=== PATIENT | female | born 1980 | race Hispanic/Latino ===

== ENCOUNTER 2017-02-15 19:41 | Emergency (ER) | payer OTHER ==
[~2017-02-15] VITALS: Ht 157.5 cm; Wt 80.9 kg
[~2017-02-15 19:41] MED LIST: POLY17PO6 PO; amitriptyline; keppra
[2017-02-15 20:00] VITALS: BP 119/80; PULSE 60; RESP 16; O2SAT 99
--- NOTE | 2017-02-15 21:57 | ED.REPORT ---
HPI-Extremity Problem Lower Date of Service Feb 15, 2017 ED Provider: Zach Del Rosario MD Pt is a 36 y/o female who presents to the ED c/o a possible infection to her left ankle s/p surgery. Per pt's , she had surgery on 01/21/17 in [place] by picking belt operator, Dr. Karolyn Ruiz. Pt states there was pus coming out of the surgical site. Nursing Notes Stated Complaint: INFECTION Chief Complaint: Extremity Trauma Nursing Notes Reviewed: Yes Allergies: Coded Allergies: No Known Allergies (Unverified Allergy, Unknown, 02/15/17) Scheduled Polyethylene Glycol 3350 (Miralax) 17 Gm Powd.pack 17 GM PO DAILY Miscellaneous Medications ([keppra]) ([amitriptyline]) General Time Seen by MD: 21:57 Chief Complaint Other (possible infection s/p surgery on L ankle ) Hx Obtained From: Patient, Spouse Arrived By: Walk-in Symptom Duration: Constant Location: : Ankle left Quality: Pleuritic Severity: Current: Mild Severity: Maximum: Moderate Pertinent Negative: Pt denies other symptoms Recent Healthcare: Recent doctor visit Similar Sx Previous: No Past Medical History Past Medical History Asthma Seizure Pt reports history of brain cancer, post resection 4 years ago Past Surgical History Brain surgery Family History Noncontributory Smoking History Never Smoker Social History Alcohol Use: Denies alcohol use Drug Use: Denies drug use Other Social History: Good social support, Lives with children, Local resident Ambulatory Status Independent Review of Systems Possible infection s/p surgery to L ankle Pus coming out of surgical site Constitutional: Denies: Chills, Fever Musculoskeletal: Reports: Extremity pain (L ankle) Skin: Denies Rash Neurologic: Denies: Headache, Numbness Complete sys rev & neg: except as marked. Eyes: Denies: Visual loss bilateral Respiratory: Denies: Non-productive cough, Prod cough, clear, Shortness of breath Allergy / Immune: Denies: Itching Physical Exam Initial Vital Signs Vital Signs (First) Date Time Temp Pulse Resp B/P Pulse Ox O2 Delivery O2 Flow Rate FiO2 02/15/17 20:00 36.8 60 16 119/80 99 Room Air Initial VS: Reviewed Head / Eyes: Atraumatic, Normocephalic Neck: Supple Respiratory: No respiratory distress Upper Extremities: Vascular intact, Neuro intact, No swelling, No tenderness Neurologic: Alert, Oriented, Nonfocal Psychiatric: Mood/affect normal, Behavior normal, Normal thought content Lower Extremity / Pelvis / MS: Neurologic intact, Vascular intact Ankle / Foot: Neurologic intact, Vascular intact 2 fairly clean incisions on left lateral ankle with swelling and erythema Good cap refill General/Constitutional: Awake, Alert Interpretation & Diagnostics Lab Results Interpretation Result Diagram: 02/15/17 2320 02/15/17 2320 Test 02/15/17 23:20 02/15/17 23:21 White Blood Count 7.4th/mm3 (3.8-10.1) Red Blood Count 4.31mil/mm3 (3.90-5.20) Hemoglobin 13.3g/dL (12.0-15.6) Hematocrit 37.7% (35.0-46.0) Mean Corpuscular Volume 87.5fL (81-100) Mean Corpuscular Hemoglobin 30.9pg (27.0-35.0) Mean Corpuscular Hemoglobin Concent 35.3% (32.0-37.0) Red Cell Distribution Width 12.4% (12.3-15.4) Platelet Count 257bil/L (150-400) Neutrophils (%) (Auto) 49.3% (40-74) Lymphocytes (%) (Auto) 38.7% (14-46) Monocytes (%) (Auto) 5.8% (4-12) Eosinophils (%) (Auto) 5.6% (0-5) Basophils (%) (Auto) 0.5% (0-3) Erythrocyte Sedimentation Rate 20mm/hr (0-32) Sodium Level 137mEq/L (134-144) Potassium Level 3.9mEq/L (3.5-5.2) Chloride Level 100mEq/L (97-108) Carbon Dioxide Level 24mmol/L (18-29) Blood Urea Nitrogen 10mg/dL (6-20) Creatinine 0.50mg/dL (0.57-1.00) Estimat Glomerular Filtration Rate 201mL/min (>59) Glucose Level 98mg/dL (60-99) Calcium Level 9.5mg/dL (8.5-10.1) Hold Herrera Top Tube Received (Received) X-Ray Interpretation Xray Interpretation: Left Ankle X-Ray: No abnormal findings. Interpretation / Wet Read by: Wet read ED physician Re-Eval/Medical Decision Med Decision/Clinical Course 36-year-old presents with swelling and mild redness in the operative area of her ankle. She was operative on by Dr. Ruiz a little over a week ago. X-ray is unremarkable and labs including cultures pending. Discharged in stable condition for follow-up with Dr. Ruiz tomorrow in the office. Discussed with Dr. Ruiz Source of Hx: Old records Re-Evaluation/Progress : Time of Eval: 21:57 Re-Evaluation/Progress Note: Discussed plan for discharge with f/u with Dr. Ruiz. Patient understands and agrees with plan. F/U instructions and RTER warnings given. All questions addressed at this time. Consultation : Referral / Consult Name: Karolyn Ruzi DPM Call Returned at: 22:22 Property Preservation Specialist: Will see patient, Agrees with eval, Agrees with plan Note: Discussed pt's case with picking belt operator, Dr. Ruiz. She will follow-up with pt in her office tomorrow. Counseled Regarding: Diagnosis, Lab results, Need for follow-up, When/why to return to ED Discharge & Departure Impression: Primary Impression: Wound infection after surgery Encounter type: initial encounter Qualified Code: T81.4XXA - Infection following a procedure, initial encounter Disposition: Home Discharge Condition All VS Reviewed: Yes Condition: Stable Patient Instructions: Crutch Instructions (ED) Additional Instructions: Use crutches to allow her to walk. Do not bear weight if the ankle is sore. Continue ibuprofen then Vicodin if needed for pain. Call first thing in the morning tomorrow to Dr. Ruiz's office for follow-up tomorrow. She will see you in the office on [address] tomorrow. If she need to present to the hospital for anything acute, go to [facility] , where she has privileges and does her operations. Use muletas para permitirle caminar. No soportar peso si el tobillo est adolorido. Contine con ibuprofeno y Vicodin si es necesario para el dolor. Llamar maana a la maana a la oficina del Dr. Ruiz para maana. Te deshawn ma dayne en la oficina de [place]. Si necesita presentar al hospital para cualquier cosa aguda, vaya al the [facility], donde rosalva tiene privilegios y hace tim operaciones. Referrals: NOPCP (PCP) Karolyn Ruiz DPM Scribe Attestation Portions of this note were transcribed by Elizabeth Weber. I, Dr. Del Rosario, personally performed the history, physical exam and medical decision-making; I reviewed and confirmed the accuracy of the information in the transcribed note. copies to: Karolyn Ruiz DPM, Christopher W MD Feb 15, 2017 21:57 Elizabeth Weber Feb 15, 2017 22:03
[2017-02-15] MEDS ORDERED: _Ondansetron ODT 4 mg Tablet PO PRN (23:05)
[2017-02-15] MEDS ORDERED: _HYDROcodone/APAP 5-325 mg Tablet PO PRN (23:05)
[2017-02-15 23:23] LABS: BASOPHILS % (AUTO) 0.5 % (0-3); EOSINOPHILS % (AUTO) 5.6 % (0-5); MONOCYTES % (AUTO) 5.8 % (4-12); Mean Corpuscular Hemoglobin 30.9 pg (27.0-35.0); Mean Corpuscular Volume 87.5 fL (81-100); NEUTROPHILS % (AUTO) 49.3 % (40-74); Platelet Count 257 bil/L (150-400)
[2017-02-15 23:41] LABS: ERYTHROCYTE SEDIMENTATION RATE 20 mm/hr (0-32)
--- NOTE | 2017-02-16 20:06 | DRSVH ---
PROCEDURE: X-RAY LEFT ANKLE, MINIMUM THREE VIEWS ([id number]) INDICATIONS: swelling and redness post operative TECHNIQUE: 3 views of the ankle were acquired. COMPARISON: [facility] [address] [place], [place], XR ANKLE 3VW LT, 07/21/2016, 13 :55. FINDINGS: Bones: No fractures or dislocations. Ankle mortise is normally aligned. No suspicious bony lesions . Soft tissues: No tibiotalar joint effusion. Achilles tendon appears normal. Lateral malleolar soft tissue swelling. IMPRESSION: Although no bony erosions are identified, plain film radiography is relatively insensiti ve in the acute phases of osteomyelitis and may not demonstrate radiographic changes for 15 days. If acute osteomyelitis is of clinical concern, nuclear medicine regional bone scan or MRI is recommende d. Dictated by: Carlos DIAZ Interpreted: Elvia Worthington MD on 02/16/2017 at 9:46 Approved by: Elvia Worthington M.D. on 02/16/2017 at 20:05
== END 2017-02-15 23:44 | disposition home or self-care (01) ==
LOC: SED 19:41
DX: T81.4XXA Infection following a procedure, initial encounter (principal); Y83.8 Other surgical procedures as the cause of abnormal reaction of the patient, or of later complication, without mention of misadventure at the time of the procedure; Y93.89 Activity, other specified; Y92.69 Other specified industrial and construction area as the place of occurrence of the external cause; Y99.0 Civilian activity done for income or pay; J45.909 Unspecified asthma, uncomplicated; Z98.890 Other specified postprocedural states